=== PATIENT | female | born 1935 | race Caucasian/White ===

== ENCOUNTER 2016-04-14 20:51 | Inpatient (IN) | payer MEDICARE, BC ==
[2016-04-14] MEDS ORDERED: SODIUM CHLORIDE 0.9% 500 ML IV STA (22:08)
[2016-04-14 22:49] LABS: Basophils % (A) 0 %; CH 29.9; CHCM 32.5; Eosinophils # (A) 0.1 k/uL (0-0.7); Eosinophils % (A) 2 %; HCT 38.5 % (34.0-46.0); HDW 2.53; HGB 12.2 gm/dL (11.4-16.0); Luc # (Auto) 0.06; Luc % (Auto) 1; Lymphocytes # (A) 0.6 k/uL (1.0-4.8); Lymphocytes % (A) 9 %; MCH 29.3 pg (25.0-35.0); MCHC 31.8 g/dL (31.0-37.0); MCV 92.2 fL (80.0-100.0); Mean Platelet Volume 7.3; Monocytes # (A) 0.4 k/uL (0-1.0); Monocytes % (A) 7 %; Neutrophils # (A) 4.9 k/uL (1.3-7.7); Neutrophils % (A) 80 %; RBC 4.18 m/uL (3.80-5.40); RDW 13.5 % (11.5-15.5); WBC 6.1 k/uL (3.8-10.6); WBC (Perox) 6.47
[2016-04-14 23:01] LABS: Anion Gap 8 mmol/L; Calcium 7.3 mg/dL (8.4-10.2); Carbon Dioxide 23 mmol/L (22-30); Chloride 111 mmol/L (98-107); Glucose 77 mg/dL (74-99); Non-African American GFR(MDRD) >60 (>60 ml/min/1.73 sqM); Sodium 142 mmol/L (137-145); Total Bilirubin 1.5 mg/dL (0.2-1.3); Total Protein 5.1 g/dL (6.3-8.2)
[2016-04-14 23:14] LABS: ALT 27 U/L (9-52); AST 16 U/L (14-36); Alkaline Phosphatase 57 U/L (38-126); Blood Urea Nitrogen 16 mg/dL (7-17); Potassium 3.8 mmol/L (3.5-5.1)
[2016-04-14 23:28] LABS: Creatine Kinase MB 0.5 ng/mL (0.0-2.4)
[2016-04-15 00:12] LABS: Appearance,Urine Bloody (Clear)
[2016-04-15 00:15] LABS: Particle Count 197300; RBC,Urine >182 /hpf (0-5); WBC,Urine >182 /hpf (0-5)
[2016-04-15 00:18] LABS: UA Billing (MACRO vs. MICRO) MICRO
--- NOTE | 2016-04-15 00:27 | ED ---
Female Urogenital HPI - General Chief complaint: Vaginal Bleeding Stated complaint: Vaginal bleeding Time Seen by Provider: 04/14/16 22:00 Source: EMS, RN notes reviewed, old records reviewed Mode of arrival: EMS - History of Present Illness Initial comments: This is a 80-year-old female who was brought in for evaluation for vaginal bleeding. No other reports of any problems reports of nausea vomiting fevers chills sweats or other symptoms. Information is limited. MD Complaint: vaginal bleeding - Related Data Home Medications Medication Instructions Recorded Confirmed Aspirin EC [Ecotrin] 325 mg PO DAILY 08/16/15 08/16/15 Docusate [Colace] 100 mg PO DAILY PRN 08/16/15 08/16/15 risperiDONE [RisperDAL] 0.5 mg PO HS PRN 08/16/15 08/16/15 Previous Rx's Medication Instructions Recorded Furosemide [Lasix] 40 mg PO DAILY #0 tab 08/22/15 Potassium Chloride ER [K-Dur 10] 10 meq PO DAILY #30 tab 08/22/15 amLODIPine [Norvasc] 2.5 mg PO DAILY #30 tablet 08/22/15 Allergies Allergy/AdvReac Type Severity Reaction Status Date / Time No Known Allergies Allergy Verified 04/14/16 21:14 Review of Systems ROS Statement: Those systems with pertinent positive or pertinent negative responses have been documented in the HPI. ROS Other: All systems not noted in ROS Statement are negative. Limitations: ROS unobtainable due to patients medical condition Past Medical History Past Medical History: Atrial Fibrillation, Cancer, Heart Failure, GERD/Reflux Additional Past Medical History / Comment(s): UTERINE CANCER History of Any Multi-Drug Resistant Organisms: None Reported Past Surgical History: Hysterectomy, Tonsillectomy Additional Past Surgical History / Comment(s): HYSTERECTOMY FOR CANCER, CATARACT -LENS IMPLANTS NOT SURE WHICH EYE Past Anesthesia/Blood Transfusion Reactions: No Reported Reaction Past Psychological History: Anxiety, Depression Smoking Status: Never smoker Past Alcohol Use History: None Reported Past Drug Use History: None Reported - Past Family History Father Family Medical History: Unable to Obtain Mother Family Medical History: Unable to Obtain General Exam - General Exam Comments Initial Comments: This a well-developed asthenic appearing female she is minimally responsive to verbal questions General appearance: alert, in no apparent distress Head exam: Present: atraumatic, normocephalic, normal inspection Eye exam: Present: normal appearance, PERRL, EOMI. Absent: scleral icterus, conjunctival injection, periorbital swelling ENT exam: Present: mucous membranes dry Neck exam: Present: normal inspection. Absent: tenderness, meningismus, lymphadenopathy Respiratory exam: Present: normal lung sounds bilaterally. Absent: respiratory distress, wheezes, rales, rhonchi, stridor Cardiovascular Exam: Present: regular rate, normal rhythm, normal heart sounds. Absent: systolic murmur, diastolic murmur, rubs, gallop, clicks GI/Abdominal exam: Present: soft, normal bowel sounds. Absent: distended, tenderness, guarding, rebound, rigid Rectal exam: Present: normal inspection External exam: Present: other (Pelvic exam reveals a partially prolapsed uterus no blood emanating from the os small amount of blood in the vaginal introitus but no definite source of bleeding) Extremities exam: Present: normal inspection, full ROM, normal capillary refill. Absent: tenderness, pedal edema, joint swelling, calf tenderness Back exam: Present: normal inspection Neurological exam: Present: alert, oriented X3, CN II-XII intact Psychiatric exam: Present: normal affect, normal mood Skin exam: Present: warm, dry, intact, normal color. Absent: rash Course Vital Signs 04/14/16 21:08 Temperature 97.4 F L Pulse Rate 89 Respiratory 18 Rate Blood Pressure 140/73 O2 Sat by Pulse 99 Oximetry Medical Decision Making - Medical Decision Making The patient does demonstrate dementia. Did discuss the findings with Dr. Hutchins. Patient be admitted renal ultrasound will be ordered in the a.m. The exam did show evidence of gross hematuria. Patient be admitted - Lab Data Result diagrams: 04/14/16 22:30 04/14/16 22:30 Lab Results 04/14/16 04/14/16 04/14/16 Range/Units 22:30 22:30 22:30 WBC 6.1 (3.8-10.6) k/uL RBC 4.18 (3.80-5.40) m/uL Hgb 12.2 (11.4-16.0) gm/dL Hct 38.5 (34.0-46.0) % MCV 92.2 (80.0-100.0) fL MCH 29.3 (25.0-35.0) pg MCHC 31.8 (31.0-37.0) g/dL RDW 13.5 (11.5-15.5) % Plt Count 269 (150-450) k/uL Neutrophils % 80 % Lymphocytes % 9 % Monocytes % 7 % Eosinophils % 2 % Basophils % 0 % Neutrophils # 4.9 (1.3-7.7) k/uL Lymphocytes # 0.6 L (1.0-4.8) k/uL Monocytes # 0.4 (0-1.0) k/uL Eosinophils # 0.1 (0-0.7) k/uL Basophils # 0.0 (0-0.2) k/uL PT (9.0-12.0) sec INR (<1.1) APTT (22.0-30.0) sec Sodium 142 (137-145) mmol/L Potassium 3.8 (3.5-5.1) mmol/L Chloride 111 H (98-107) mmol/L Carbon Dioxide 23 (22-30) mmol/L Anion Gap 8 mmol/L BUN 16 (7-17) mg/dL Creatinine 0.60 (0.52-1.04) mg/dL Est GFR (MDRD) Af Amer >60 (>60 ml/min/1.73 sqM) Est GFR (MDRD) Non-Af >60 (>60 ml/min/1.73 sqM) Glucose 77 (74-99) mg/dL Calcium 7.3 L (8.4-10.2) mg/dL Total Bilirubin 1.5 H (0.2-1.3) mg/dL AST 16 (14-36) U/L ALT 27 (9-52) U/L Alkaline Phosphatase 57 (38-126) U/L Total Creatine Kinase (30-135) U/L CK-MB (CK-2) (0.0-2.4) ng/mL CK-MB (CK-2) Rel Index Total Protein 5.1 L (6.3-8.2) g/dL Albumin 2.2 L (3.5-5.0) g/dL Urine Color Urine Appearance (Clear) Urine RBC (0-5) /hpf Urine WBC (0-5) /hpf Blood Type A Positive Blood Type Confirm Blood Type Recheck CABO Indicated Antibody Screen NEGATIVE Spec Expiration Date 04/17/2016201604/14/16 04/14/16 04/14/16 Range/Units 22:30 22:30 23:50 WBC (3.8-10.6) k/uL RBC (3.80-5.40) m/uL Hgb (11.4-16.0) gm/dL Hct (34.0-46.0) % MCV (80.0-100.0) fL MCH (25.0-35.0) pg MCHC (31.0-37.0) g/dL RDW (11.5-15.5) % Plt Count (150-450) k/uL Neutrophils % % Lymphocytes % % Monocytes % % Eosinophils % % Basophils % % Neutrophils # (1.3-7.7) k/uL Lymphocytes # (1.0-4.8) k/uL Monocytes # (0-1.0) k/uL Eosinophils # (0-0.7) k/uL Basophils # (0-0.2) k/uL PT 11.4 (9.0-12.0) sec INR 1.1 (<1.1) APTT 22.9 (22.0-30.0) sec Sodium (137-145) mmol/L Potassium (3.5-5.1) mmol/L Chloride (98-107) mmol/L Carbon Dioxide (22-30) mmol/L Anion Gap mmol/L BUN (7-17) mg/dL Creatinine (0.52-1.04) mg/dL Est GFR (MDRD) Af Amer (>60 ml/min/1.73 sqM) Est GFR (MDRD) Non-Af (>60 ml/min/1.73 sqM) Glucose (74-99) mg/dL Calcium (8.4-10.2) mg/dL Total Bilirubin (0.2-1.3) mg/dL AST (14-36) U/L ALT (9-52) U/L Alkaline Phosphatase (38-126) U/L Total Creatine Kinase 31 (30-135) U/L CK-MB (CK-2) 0.5 (0.0-2.4) ng/mL CK-MB (CK-2) Rel Index 1.6 Total Protein (6.3-8.2) g/dL Albumin (3.5-5.0) g/dL Urine Color Light Red Urine Appearance Bloody H (Clear) Urine RBC >182 H (0-5) /hpf Urine WBC >182 H (0-5) /hpf Blood Type Blood Type Confirm Blood Type Recheck Antibody Screen Spec Expiration Date 04/15/16 Range/Units 00:09 WBC (3.8-10.6) k/uL RBC (3.80-5.40) m/uL Hgb (11.4-16.0) gm/dL Hct (34.0-46.0) % MCV (80.0-100.0) fL MCH (25.0-35.0) pg MCHC (31.0-37.0) g/dL RDW (11.5-15.5) % Plt Count (150-450) k/uL Neutrophils % % Lymphocytes % % Monocytes % % Eosinophils % % Basophils % % Neutrophils # (1.3-7.7) k/uL Lymphocytes # (1.0-4.8) k/uL Monocytes # (0-1.0) k/uL Eosinophils # (0-0.7) k/uL Basophils # (0-0.2) k/uL PT (9.0-12.0) sec INR (<1.1) APTT (22.0-30.0) sec Sodium (137-145) mmol/L Potassium (3.5-5.1) mmol/L Chloride (98-107) mmol/L Carbon Dioxide (22-30) mmol/L Anion Gap mmol/L BUN (7-17) mg/dL Creatinine (0.52-1.04) mg/dL Est GFR (MDRD) Af Amer (>60 ml/min/1.73 sqM) Est GFR (MDRD) Non-Af (>60 ml/min/1.73 sqM) Glucose (74-99) mg/dL Calcium (8.4-10.2) mg/dL Total Bilirubin (0.2-1.3) mg/dL AST (14-36) U/L ALT (9-52) U/L Alkaline Phosphatase (38-126) U/L Total Creatine Kinase (30-135) U/L CK-MB (CK-2) (0.0-2.4) ng/mL CK-MB (CK-2) Rel Index Total Protein (6.3-8.2) g/dL Albumin (3.5-5.0) g/dL Urine Color Urine Appearance (Clear) Urine RBC (0-5) /hpf Urine WBC (0-5) /hpf Blood Type Blood Type Confirm A Positive Blood Type Recheck Antibody Screen Spec Expiration Date - EKG Data -: EKG Interpreted by Me (Irregular rhythm anyone is a heart rate QRS of 70 daily since QTC of 370/45) - Radiology Data Radiology results: report reviewed (I did review the imaging and report no acute findings.), image reviewed Disposition Clinical Impression: Gross hematuria, Dehydration Disposition: ADMITTED IP TO THIS [facility] Condition: Stable
[2016-04-15 00:44] LABS: INR 1.1 (<1.1); Partial Thromboplastin Time 22.9 sec (22.0-30.0); Prothrombin Time 11.4 sec (9.0-12.0)
--- NOTE | 2016-04-15 01:13 | XR ---
EXAMINATION TYPE: XR abdomen 1V DATE OF EXAM: 04/15/2016 12:48 AM COMPARISON: NONE HISTORY: Blood in the urine TECHNIQUE: Single view FINDINGS: There is no sign of intestinal obstruction or pneumoperitoneum. Fecal pattern is normal. Th ere are no pathologic calcifications over the kidneys. There is blunting of right costophrenic angle. IMPRESSION: Nonacute abdomen. Right pleural effusion.
--- NOTE | 2016-04-15 01:15 | XR ---
EXAMINATION TYPE: XR chest 1V DATE OF EXAM: 04/15/2016 12:48 AM COMPARISON: 08/16/2015 HISTORY: Cough TECHNIQUE: Single frontal view of the chest is obtained. FINDINGS: There is blunting of right costophrenic angle. There is no heart failure. Left lung is sarah ar. There are chest leads. IMPRESSION: There is right pleural effusion and pleural diaphragmatic reaction that is new compared to old exam. No heart failure.
[2016-04-15] MEDS ORDERED: NALOXONE 0.4 MG/ML 1 ML VIAL IV PRN (01:30)
[2016-04-15] MEDS ORDERED: DOCUSATE 100 MG CAP PO PRN (01:32)
[2016-04-15] MEDS ORDERED: risperiDONE 0.5 MG TAB PO PRN (01:32)
[2016-04-15 02:39] VITALS: BMI 30.4
[2016-04-15] MEDS: SODIUM CHLORIDE 0.9% 1,000 ML IV SCH ×2 (04:56→08:54)
[2016-04-15] MEDS: POTASSIUM CHLORIDE ER 10 MEQ TAB.ER.PRT PO SCH (08:52)
[2016-04-15] MEDS: amLODIPine 2.5 MG TAB PO SCH (08:52)
[2016-04-15] MEDS: FUROSEMIDE 40 MG TAB PO SCH (08:52)
[2016-04-15] MEDS ORDERED: MAG HYDROX/AL HYDROX/SIMETH 30 ML CUP PO PRN (11:16)
[2016-04-15] MEDS ORDERED: ACETAMINOPHEN TAB 325 MG TAB PO PRN (11:16)
[2016-04-15] MEDS ORDERED: SENNOSIDES-DOCUSATE SODIUM 1 EACH TAB PO PRN (11:16)
--- NOTE | 2016-04-15 11:47 | US ---
EXAMINATION TYPE: US kidneys/renal and bladder DATE OF EXAM: 04/15/2016 10:32 AM COMPARISON: NONE CLINICAL HISTORY: Gross hematuria. EXAM MEASUREMENTS: Right Kidney: 10.2 x 3.9 x 4.1 cm Left Kidney: not well visualized cm Patient of large body habitus, unwilling to lay down for test, unwilling/unable to cooperate with exa deportation examiner, patient arms in way of scanning left kidney, exam very limited and technically difficult Right Kidney: there appears to be a cyst measuring 2.1 x 1.7 x 1.6cm, there also seems to be some mil d hydronephrosis, with dilated ureter Left Kidney: very difficult to visualize due to poor patient cooperation, patient stated that test ne eded to stop while examiner was scanning this kidney, not visualized in its entirety. Bladder: possible thick walled uterocele vs mass IMPRESSION: There is mild right hydronephrosis and hydroureter. No definite renal stone. However, there is abnorm al hypoechogenic lesion involving the bladder posterior wall possibly related to mass versus ureteroc javier.
--- NOTE | 2016-04-15 12:24 | P.HPIM ---
History of Present Illness H&P Date: 04/15/16 Chief Complaint: Hematuria This is a 80-year-old female with past medical history noted below significant for underlying dementia that is usually alert and oriented to herself and to the place only. Patient is a very poor historian. Most of the history was obtained by chart review and nursing staff report. Patient's a long-term resident at [facility]. She was brought into the emergency room with concern about possible vagina bleed. She was evaluated in the emergency room and was noted to have adry hematuria. Patient herself denies any abdominal pain. She is not sure why she is in the hospital. Her hemoglobin was stable. INR is normal. Patient is not on any anticoagulation usually. No prior episodes of hematuria known to me. Review of Systems Review of system: 14 points review of systems were obtained and were negative except to what were mentioned in the HPI. Past Medical History Past Medical History: Atrial Fibrillation, Cancer, Heart Failure, GERD/Reflux Additional Past Medical History / Comment(s): UTERINE CANCER History of Any Multi-Drug Resistant Organisms: None Reported Past Surgical History: Hysterectomy, Tonsillectomy Additional Past Surgical History / Comment(s): HYSTERECTOMY FOR CANCER, CATARACT -LENS IMPLANTS NOT SURE WHICH EYE Past Anesthesia/Blood Transfusion Reactions: No Reported Reaction Past Psychological History: Anxiety, Depression Smoking Status: Never smoker Past Alcohol Use History: None Reported Past Drug Use History: None Reported - Past Family History Father Family Medical History: Unable to Obtain Mother Family Medical History: Unable to Obtain Medications and Allergies Home Medications Medication Instructions Recorded Confirmed Type ALPRAZolam [Xanax] 0.25 mg PO HS@1700 04/15/16 04/15/16 History Acetaminophen [Tylenol] 650 mg PO Q6H PRN 04/15/16 04/15/16 History Aspirin 325 mg PO DAILY 04/15/16 04/15/16 History Mag Hydrox/Al Hydrox/Simeth 30 ml PO QID PRN 04/15/16 04/15/16 History [Maalox] Sennosides-Docusate Sodium 1 tab PO BID PRN 04/15/16 04/15/16 History [Senokot-S] risperiDONE [RisperDAL] 2 mg PO HS 04/15/16 04/15/16 History Allergies Allergy/AdvReac Type Severity Reaction Status Date / Time No Known Allergies Allergy Verified 04/15/16 08:30 Physical Exam Vitals: Vital Signs Temp Pulse Pulse Resp BP BP Pulse Ox 04/15/16 07:00 97.4 F L 103 H 16 107/69 97 04/15/16 02:02 97.5 F L 78 18 119/60 98 Intake and Output 04/14/16 04/15/16 04/15/16 22:59 06:59 14:59 Intake Total 240 Balance 240 Intake: IV 240 Sodium Chloride 0.9% 1, 240 000 ml @ 80 mls/hr IV . [id number] [facility] Rx#:[id number] Other: Voiding Method Diaper Diaper Incontinent Incontinent # Voids 1 Weight 90.718 kg General: The patient is awake and alert, in no distress Eye: there is normal conjunctiva bilaterally. Neck: The neck is supple, there is no JVD. Cardiovascular: Normal S1-S2, no S3-S4, no murmurs. Respiratory: Lungs clear to auscultation bilaterally Gastrointestinal: Abdomen is soft, nontender Musculoskeletal: There is no pedal edema. Neurological:. Speech is normal. Skin: Skin is warm and dry Results CBC & Chem 7: 04/14/16 22:30 04/14/16 22:30 Thrombosis Risk Factor Assmnt - Choose All That Apply Each Factor Represents 1 point: Obesity (BMI >25) Each Risk Factor Represents 3 Points: Age 75 years or older Thrombosis Risk Factor Assessment Total Risk Factor Score: 4 Thrombosis Risk Factor Assessment Level: Moderate Risk Assessment and Plan Plan: 1. Acute cystitis with hematuria: Started on IV ceftriaxone 2. Hematuria most likely attributed to #1. Awaiting kidney ultrasound to rule out kidney stones. If nondiagnostic in hematuria persists will consider computed tomography scan 3. Underlying vascular dementia with occasional psychotic features: Now stable 4. Essential hypertension: Blood pressure well-controlled 5. Chronic venous insufficiency
[2016-04-15 13:29] LABS: Bilirubin,Urine Negative (Negative); Glucose,Urine (UA) Negative (Negative); Ketones,Urine Negative (Negative); Leukocyte Esterase,Urine Moderate (Negative); Nitrite,Urine Negative (Negative); Particle Count 7127; Protein,Urine 1+ (Negative); RBC,Urine >182 /hpf (0-5); Specific Gravity,Urine 1.014 (1.001-1.035); UA Billing (MACRO vs. MICRO) MICRO; Urobilinogen,Urine <2.0 mg/dL (<2.0); WBC,Urine 50 /hpf (0-5)
[2016-04-15 13:43] LABS: Appearance,Urine Bloody (Clear)
[2016-04-15] MEDS: ALPRAZolam 0.25 MG TAB PO SCH (16:55)
[2016-04-15] MEDS: risperiDONE 2 MG TAB PO SCH (19:51)
[2016-04-16 08:46] LABS: Basophils % (A) 0 %; CH 29.6; CHCM 31.3; Eosinophils # (A) 0.1 k/uL (0-0.7); Eosinophils % (A) 2 %; HCT 37.5 % (34.0-46.0); HDW 2.46; HGB 11.8 gm/dL (11.4-16.0); Hypochromasia Slight; Luc # (Auto) 0.06; Luc % (Auto) 1; Lymphocytes # (A) 0.4 k/uL (1.0-4.8); Lymphocytes % (A) 7 %; MCH 29.9 pg (25.0-35.0); MCHC 31.5 g/dL (31.0-37.0); MCV 95.1 fL (80.0-100.0); Mean Platelet Volume 7.4; Monocytes # (A) 0.3 k/uL (0-1.0); Monocytes % (A) 7 %; Neutrophils # (A) 4.3 k/uL (1.3-7.7); Neutrophils % (A) 83 %; RBC 3.94 m/uL (3.80-5.40); RDW 13.7 % (11.5-15.5); WBC 5.2 k/uL (3.8-10.6)
[2016-04-16 09:03] LABS: Anion Gap 8 mmol/L; Blood Urea Nitrogen 12 mg/dL (7-17); Calcium 8.7 mg/dL (8.4-10.2); Carbon Dioxide 26 mmol/L (22-30); Chloride 109 mmol/L (98-107); Glucose 80 mg/dL (74-99); Non-African American GFR(MDRD) >60 (>60 ml/min/1.73 sqM); Potassium 4.2 mmol/L (3.5-5.1); Sodium 143 mmol/L (137-145)
[2016-04-16] MEDS: amLODIPine 2.5 MG TAB PO SCH (09:35)
[2016-04-16] MEDS: FUROSEMIDE 40 MG TAB PO SCH (09:35)
[2016-04-16] MEDS: POTASSIUM CHLORIDE ER 10 MEQ TAB.ER.PRT PO SCH (09:35)
--- NOTE | 2016-04-16 11:43 | P.PN ---
Subjective Patient remained confused today. Her hematuria appears to be resolving. Hemoglobin is stable. Objective - Vital Signs Vital signs: Vital Signs Temp 98.0 F 04/16/16 07:00 Pulse 89 04/16/16 07:00 Resp 16 04/16/16 07:00 BP 114/65 04/16/16 07:00 Pulse Ox 93 L 04/16/16 07:00 Intake & Output 04/15/16 04/16/16 04/16/16 18:59 06:59 18:59 Intake Total 930 1230 Balance 930 1230 Weight 90.718 kg Intake: IV 640 640 Sodium Chloride 0.9% 1, 640 640 000 ml @ 80 mls/hr IV . [id number] [facility] Rx#:[id number] Intake, IV Titration 50 Amount cefTRIAXone 1,000 mg In 50 Sodium Chloride 0.9% 50 ml @ 100 mls/hr IVPB Q24H [facility] Rx#:[id number] Oral 240 590 Other: Voiding Method Diaper Diaper Incontinent Incontinent # Voids 4 1 - Labs CBC & Chem 7: 04/16/16 08:04 04/16/16 08:04 Labs: Abnormal Lab Results - Last 24 Hours (Table) 04/15/16 04/16/16 04/16/16 Range/Units 12:10 08:04 08:04 Lymphocytes # 0.4 L (1.0-4.8) k/uL Chloride 109 H (98-107) mmol/L Urine Appearance Bloody H (Clear) Urine Protein 1+ H (Negative) Urine Blood Large H (Negative) Ur Leukocyte Esterase Moderate H (Negative) Urine RBC >182 H (0-5) /hpf Urine WBC 50 H (0-5) /hpf Microbiology - Last 24 Hours (Table) 04/15/16 12:10 Urine Culture - Preliminary Urine,Catheterized Assessment and Plan Plan: 1. Acute cystitis with hematuria: Started on IV ceftriaxone awaiting urine culture 2. Hematuria with suspected intraluminal mass seen and evaluated by urology plan for cystoscopy in the morning. 3. Underlying vascular dementia with occasional psychotic features: Now stable 4. Essential hypertension: Blood pressure well-controlled 5. Chronic venous insufficiency Plan for today: Continue supportive care. Nothing by mouth after midnight. Cystoscopy in the morning. Start IV fluid in the evening.
--- NOTE | 2016-04-16 14:26 | CONS ---
DATE OF CONSULTATION: 04/16/2016 REASON FOR CONSULTATION: Gross hematuria. Patient is an 80-year-old female with dementia who was noted to have blood in her diaper yesterday. Initially it was unclear whether this was vaginal bleeding or gross hematuria. The patient was taken to the emergency room where she was evaluated and noted to have gross hematuria. Patient's hemoglobin was 12.2, BUN 16, and creatinine was 0.60. The patient was admitted for further evaluation. Renal ultrasound showed mild right hydronephrosis and a possible 3 cm bladder mass. Since yesterday, the patient's gross hematuria has almost resolved, as this morning she is voiding pink urine without clots. The patient is incontinent. The patient is demented and is unable to provide any meaningful history. PAST MEDICAL HISTORY: Significant in regard to either uterine or cervical cancer, previously treated with abdominal hysterectomy and radiation therapy. She has also undergone cataract surgery. There is apparently a history of atrial fibrillation and GERD. Medications on admission included Lasix, K-Dur, Senokot, Xanax, aspirin and Risperdal. The patient has no allergies. Review of systems is unobtainable due to the patient's dementia. SOCIAL HISTORY: The patient apparently does not smoke. Physical exam reveals an elderly female who is somewhat confused, afebrile. Blood pressure 107/75. HEENT: No scleral icterus. No supraclavicular or cervical adenopathy. CHEST: Breathing is unlabored. ABDOMEN: Somewhat obese. No hepatosplenomegaly. No suprapubic tenderness. There is a tattoo in the suprapubic region and over the right hip, which is most likely from previous radiation therapy. Bimanual pelvic examination was attempted and the urethral meatus and external genitalia appeared normal. The patient would not allow further exam. IMPRESSION: Gross hematuria and mild right hydronephrosis- the cause of this is unclear. The patient does appear to have an abnormality in the bladder noted on the ultrasound of the kidneys and bladder. Cystoscopy and right retrograde will be set up for further evaluation of this, as it is unclear whether this could represent a blood clot or urothelial tumor. Thank you for allowing me to participate in the care of this patient. ALINE
[2016-04-16] MEDS: ALPRAZolam 0.25 MG TAB PO SCH (19:53)
[2016-04-16] MEDS: risperiDONE 2 MG TAB PO SCH (19:53)
[2016-04-17] MEDS: DEXTROSE 5%-0.45% NACL 1,000 ML IV SCH ×2 (00:36→16:13)
[2016-04-17 07:37] LABS: Basophils % (A) 0 %; CH 29.7; CHCM 32.2; Eosinophils # (A) 0.1 k/uL (0-0.7); Eosinophils % (A) 2 %; HGB 11.3 gm/dL (11.4-16.0); Luc # (Auto) 0.06; Luc % (Auto) 1; Lymphocytes # (A) 0.4 k/uL (1.0-4.8); Lymphocytes % (A) 9 %; MCH 29.1 pg (25.0-35.0); MCHC 31.5 g/dL (31.0-37.0); MCV 92.5 fL (80.0-100.0); Mean Platelet Volume 7.4; Monocytes # (A) 0.4 k/uL (0-1.0); Monocytes % (A) 8 %; Neutrophils # (A) 3.7 k/uL (1.3-7.7); Neutrophils % (A) 80 %; RBC 3.89 m/uL (3.80-5.40); RDW 13.4 % (11.5-15.5); WBC 4.7 k/uL (3.8-10.6); WBC (Perox) 4.98
[2016-04-17 08:01] LABS: Anion Gap 7 mmol/L; Blood Urea Nitrogen 11 mg/dL (7-17); Calcium 8.4 mg/dL (8.4-10.2); Carbon Dioxide 28 mmol/L (22-30); Chloride 105 mmol/L (98-107); Glucose 89 mg/dL (74-99); Non-African American GFR(MDRD) >60 (>60 ml/min/1.73 sqM); Potassium 3.4 mmol/L (3.5-5.1); Sodium 140 mmol/L (137-145)
[2016-04-17] MEDS ORDERED: IV FLUID CONTINUATION 1,000 ML IV ONE (11:31)
--- NOTE | 2016-04-17 12:21 | P.PN ---
Subjective Patient is scheduled for operation on today for cystoscopy. Objective - Vital Signs Vital signs: Vital Signs Temp 97.7 F 04/17/16 07:00 Pulse 79 04/17/16 07:00 Resp 18 04/17/16 07:00 BP 125/65 04/17/16 07:00 Pulse Ox 98 04/17/16 07:00 Intake & Output 04/16/16 04/17/16 04/17/16 18:59 06:59 18:59 Intake Total 0 550 Balance 0 550 Intake: IV 550 Oral 0 Other: Voiding Method Diaper Diaper Diaper Incontinent Incontinent Incontinent # Voids 2 2 - Labs CBC & Chem 7: 04/17/16 07:18 04/17/16 07:18 Labs: Abnormal Lab Results - Last 24 Hours (Table) 04/17/16 04/17/16 Range/Units 07:18 07:18 Hgb 11.3 L (11.4-16.0) gm/dL Lymphocytes # 0.4 L (1.0-4.8) k/uL Potassium 3.4 L (3.5-5.1) mmol/L Microbiology - Last 24 Hours (Table) 04/15/16 12:10 Urine Culture - Final Urine,Catheterized Assessment and Plan Plan: 1. Acute cystitis with hematuria: Started on IV ceftriaxone awaiting urine culture 2. Hematuria with suspected intraluminal mass seen and evaluated by urology plan for cystoscopy today 3. Underlying vascular dementia with occasional psychotic features: Now stable 4. Essential hypertension: Blood pressure well-controlled 5. Chronic venous insufficiency Plan for today: Continue supportive care. Plan for OR later.
[2016-04-17] MEDS ORDERED: LIDOCAINE 1% INJ 10MG/ML (20 ML MDV) ONE (12:28)
[2016-04-17] MEDS ORDERED: PROPOFOL 10 MG/ML 20 ML VIAL IV ONE (12:28)
[2016-04-17] MEDS ORDERED: PHENYLEPHRINE-0.9% NACL SYG 1 MG/10 ML SYRINGE ONE (12:28)
[2016-04-17] MEDS ORDERED: MIDAZOLAM 2 MG/2 ML VIAL ONE (12:28)
[2016-04-17] MEDS ORDERED: SUCCINYLCHOLINE CHLORIDE 100 MG/5 ML SYR IV ONE (12:28)
[2016-04-17] MEDS ORDERED: fentaNYL (PF) 50 MCG/ML 2 ML AMP ONE (12:28)
[2016-04-17] MEDS ORDERED: IOHEXOL 300 MG/ML 50 ML BOTTLE MISCELLANE ONE (12:46)
[2016-04-17] MEDS ORDERED: LACTATED RINGERS 1,000 ML IV ONE (12:58)
--- NOTE | 2016-04-17 14:36 | FL ---
Fluoroscopy HISTORY: Pain 4 seconds fluoroscopy time supplied to the referring clinician. 6 intraoperative C-arm images docume nt the procedure. See dictated report from urology.
[2016-04-17] MEDS: POTASSIUM CHLORIDE ER 10 MEQ TAB.ER.PRT PO SCH (15:52)
[2016-04-17] MEDS: FUROSEMIDE 40 MG TAB PO SCH (15:52)
[2016-04-17] MEDS: amLODIPine 2.5 MG TAB PO SCH (15:52)
[2016-04-17] MEDS: risperiDONE 2 MG TAB PO SCH (20:38)
[2016-04-17] MEDS: ALPRAZolam 0.25 MG TAB PO SCH (20:40)
--- NOTE | 2016-04-17 23:22 | OP ---
DATE OF SERVICE: 04/17/2016 SURGEON: SUSANA WILLIAMSON MD PREOPERATIVE DIAGNOSIS: Gross hematuria and possible bladder mass plus mild right hydronephrosis. POSTOPERATIVE DIAGNOSES: 1. 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 2. Right hydronephrosis secondary to extrinsic compression of right ureter. OPERATION: Cystoscopy with right retrograde pyelogram ANESTHESIA: General. The patient is an 80-year-old female with a history of dementia who was admitted on 04/15 with gross hematuria. Renal ultrasound showed evidence of mild right hydronephrosis and what appeared to be a mass in the bladder. The patient was unable to provide any history but has tattoos in her pelvis consistent with previous pelvic radiation therapy as well as a lower abdominal midline scar consistent with a hysterectomy. Cystoscopy is planned for further evaluation of the hematuria. PROCEDURE: The patient was taken to the operating suite, where adequate general anesthesia via orotracheal intubation was instituted. The patient was placed in the dorsal lithotomy position with her legs suspended from padded Derrell stirrups. Pneumatic compression stockings were applied to the lower legs. The genitalia was prepped with Betadine solution and draped in a sterile fashion. The external genitalia and urethral meatus were unremarkable. The 19 Pakistani cystoscope sheath with 30-degree lens was passed through the urethra and into the bladder. Both ureteral orifices were of normal location and configuration. There was some minimal scarring of the right ureteral orifice, but it was otherwise unremarkable. The bladder showed evidence of diffuse telectasias consistent with previous radiation therapy. There was no evidence of tumor, foreign body or clot present within the bladder. A right retrograde pyeloureterogram was performed using an 8 Pakistani cone-tipped catheter. There is some mild compression of the pelvic ureter, and at the pelvic brim near the iliac vessels there appeared to be some extrinsic compression of the ureter. Ureter proximal to that was slightly dilated. In view of the patient's age and a normal creatinine of 0.60 at the time of admission, it was my feeling that further intervention in regard to the hydronephrosis was not warranted. The cystoscope was withdrawn and the procedure was terminated. The patient tolerated the procedure well and left the operating room awake and in satisfactory condition. There was no blood loss. No further evaluation is planned at this time. [facility]
[2016-04-18] MEDS: amLODIPine 2.5 MG TAB PO SCH (10:30)
[2016-04-18] MEDS: FUROSEMIDE 40 MG TAB PO SCH (10:30)
[2016-04-18] MEDS: POTASSIUM CHLORIDE ER 10 MEQ TAB.ER.PRT PO SCH (10:31)
[2016-04-18] MEDS: DEXTROSE 5%-0.45% NACL 1,000 ML IV SCH (12:29)
[2016-04-18] MEDS ORDERED: RX INFO: IV CONTRAST WAS GIVEN 1 EACH MISC MISCELLANE PRN (12:50)
--- NOTE | 2016-04-18 14:23 | P.PN ---
Subjective Patient was slightly agitated this morning and refuses to take her medications. No events overnight. No further hematuria. Objective - Vital Signs Vital signs: Vital Signs Temp 97.7 F 04/18/16 07:00 Pulse 86 04/18/16 08:00 Resp 16 04/18/16 08:00 BP 120/60 04/18/16 07:00 Pulse Ox 93 L 04/18/16 07:00 Intake & Output 04/17/16 04/18/16 04/18/16 18:59 06:59 18:59 Intake Total 1100 600 Output Total 0 Balance 1100 600 Weight 90.718 kg Intake: IV 1100 600 Dextrose 5%-0.45% NaCl 1, 600 000 ml @ 50 mls/hr IV . Q20H LYN Rx#:[id number] Output: Estimated Blood Loss 0 Other: Voiding Method Diaper Diaper Diaper Incontinent Incontinent Incontinent # Voids 2 2 - Exam General: The patient is awake and alert, in no distress Eye: there is normal conjunctiva bilaterally. Neck: The neck is supple, there is no JVD. Cardiovascular: Normal S1-S2, no S3-S4, no murmurs. Respiratory: Lungs clear to auscultation bilaterally Gastrointestinal: Abdomen is soft, nontender Musculoskeletal: There is no pedal edema. Neurological:. Speech is normal. Skin: Skin is warm and dry - Labs CBC & Chem 7: 04/17/16 07:18 04/17/16 07:18 Assessment and Plan Plan: 1. 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 Started on IV ceftriaxone, urine culture negative. We will finish 3 days course of antibiotic. 2. Hematuria with suspected intraluminal mass on ultrasound. Seen and evaluated by urology. Status post cystoscopy with no evidence of intraluminal mass. Evidence of cystitis secondary to radiation and possible extrinsic compression on the right ureter. I would obtain a computed tomography scan of the abdomen and pelvis for further evaluation 3. Underlying vascular dementia with occasional psychotic features: Now stable 4. Essential hypertension: Blood pressure well-controlled 5. Chronic venous insufficiency Plan for today: Obtain computed tomography scan of the abdomen and pelvis. Continue supportive care. Repeat lab work in the morning. Possible discharge back to [facility] tomorrow.
--- NOTE | 2016-04-18 15:47 | CT ---
EXAMINATION TYPE: CT abdomen pelvis w con DATE OF EXAM: 04/18/2016 3:08 PM COMPARISON: Retrograde urogram first of April 2015, ultrasound kidneys 15 April 2016 HISTORY: Patient poor historian. Possible extrinsic ureter compression or mass. CT DLP: 1409.50 mGycm Automated exposure control for dose reduction was used. TECHNIQUE: Helical acquisition of images was performed from the lung bases through the pelvis. CONTRAST: Performed without Oral Contrast and with IV Contrast, patient injected with 100 mL of Omnipaque 300. FINDINGS: LUNG BASES: Small bilateral pleural effusions and associated atelectasis are present posteriorly. The heart is enlarged. There are mitral annular and coronary artery calcifications, no pericardial effus ion LIVER/GB: No significant abnormality is appreciated in gallbladder. Liver shows low attenuation, is s lightly enlarged. PANCREAS: No significant abnormality is seen. SPLEEN: No significant abnormality is seen. ADRENALS: No significant abnormality is seen. KIDNEYS: Mild hydronephrosis right kidney and right hydroureter to the level of the surgical clips no mike in the retroperitoneum along the psoas. RETROPERITONEAL ADENOPATHY: None visualized REPRODUCTIVE ORGANS: Post hysterectomy, ovaries are not seen URINARY BLADDER: Bladder wall thickening is indeterminate. PELVIC ADENOPATHY: None visualized. 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 BOWEL: No significant abnormality is seen. OTHER: IMPRESSION: Partial ureteral obstruction is likely due to post op changes, scarring. Bilateral effusions, hepatom egaly and possible fatty infiltration. Additional findings above.
[2016-04-18] MEDS: ALPRAZolam 0.25 MG TAB PO SCH ×2 (18:36→20:59)
[2016-04-18] MEDS: risperiDONE 2 MG TAB PO SCH (20:59)
[2016-04-19 07:41] LABS: Basophils % (A) 0 %; CH 29.4; Eosinophils # (A) 0.1 k/uL (0-0.7); Eosinophils % (A) 2 %; HCT 39.8 % (34.0-46.0); HDW 2.44; HGB 12.1 gm/dL (11.4-16.0); Hypochromasia Slight; Luc % (Auto) 2; Lymphocytes # (A) 0.5 k/uL (1.0-4.8); Lymphocytes % (A) 9 %; MCHC 30.5 g/dL (31.0-37.0); MCV 95.2 fL (80.0-100.0); Mean Platelet Volume 7.5; Monocytes # (A) 0.5 k/uL (0-1.0); Monocytes % (A) 9 %; Neutrophils # (A) 4.2 k/uL (1.3-7.7); Neutrophils % (A) 77 %; RBC 4.18 m/uL (3.80-5.40); RDW 13.6 % (11.5-15.5); WBC 5.4 k/uL (3.8-10.6); WBC (Perox) 5.14
[2016-04-19 07:48] LABS: Anion Gap 10 mmol/L; Blood Urea Nitrogen 14 mg/dL (7-17); Carbon Dioxide 24 mmol/L (22-30); Chloride 107 mmol/L (98-107); Glucose 84 mg/dL (74-99); Non-African American GFR(MDRD) >60 (>60 ml/min/1.73 sqM); Potassium 4.1 mmol/L (3.5-5.1); Sodium 141 mmol/L (137-145)
[2016-04-19] MEDS: amLODIPine 2.5 MG TAB PO SCH (08:56)
[2016-04-19] MEDS: POTASSIUM CHLORIDE ER 10 MEQ TAB.ER.PRT PO SCH (08:56)
[2016-04-19] MEDS: FUROSEMIDE 40 MG TAB PO SCH (08:56)
[2016-04-19 10:12] VITALS: RESP 16
--- NOTE | 2016-04-19 14:35 | P.DS ---
Providers Date of admission: 04/15/16 01:30 Expected date of discharge: 04/19/16 Attending physician: Corina Hutchins Consults: 04/15/16 16:11 Consult Physician Routine Consulting Provider: Berny Villegas Consult Reason/Comments: Hematuria suspected bladder mass? Do you want consulting provider notified?: Yes Primary care physician: Anuradha Rajan Hospital Course: Discharge diagnosis 1. 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 Started on IV ceftriaxone, urine culture negative. Patient completed antibiotic treatment and hospital 2. Hematuria with suspected intraluminal mass on ultrasound. Seen and evaluated by urology. Status post cystoscopy with no evidence of intraluminal mass. Evidence of cystitis secondary to radiation and possible extrinsic compression on the right ureter. Computed tomography scan showed partial ureteral obstruction likely due to postop changes and scarring. 3. Underlying vascular dementia with occasional psychotic features: Now stable 4. Essential hypertension: Blood pressure well-controlled 5. Chronic venous insufficiency Hospital course This is a 80-year-old female with past medical history noted below significant for underlying dementia that is usually alert and oriented to herself and to the place only. Patient is a very poor historian. Most of the history was obtained by chart review and nursing staff report. Patient's a long-term resident at [facility]. She was brought into the emergency room with concern about possible vagina bleed. She was evaluated in the emergency room and was noted to have adry hematuria. Patient was evaluated by urology. Patient had a renal ultrasound had showed mild right hydronephrosis and what appeared to be a mass in the bladder. She also is having some hematuria. And therefore underwent a cystoscopy with Dr. Donahue. Dr. 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 In the right hydronephrosis is secondary to extrinsic compression of the right ureter. There was no evidence of any mass. Further computed tomography scan showed a partial ureteral obstruction due to postop changes and scarring. Patient's symptoms have improved she is stable for discharge. She did complete treatment for this cystitis with Rocephin for 4 days. Patient will be discharged to [facility]. Dr. Rajan will continue to follow her there. Patient Condition at Discharge: Stable Plan - Discharge Summary Discharge Medication List Furosemide [Lasix] 40 mg PO DAILY #0 tab 08/22/15 [Rx] Potassium Chloride ER [K-Dur 10] 10 meq PO DAILY #30 tab 08/22/15 [Rx] ALPRAZolam [Xanax] 0.25 mg PO HS@1700 04/15/16 [History] Acetaminophen [Tylenol] 650 mg PO Q6H PRN 04/15/16 [History] Aspirin 325 mg PO DAILY 04/15/16 [History] Mag Hydrox/Al Hydrox/Simeth [Maalox] 30 ml PO QID PRN 04/15/16 [History] Sennosides-Docusate Sodium [Senokot-S] 1 tab PO BID PRN 04/15/16 [History] risperiDONE [RisperDAL] 2 mg PO HS 04/15/16 [History] amLODIPine [Norvasc] 2.5 mg PO DAILY tab 04/19/16 [Rx] Follow up Appointment(s)/Referral(s): Anuradha Rajan MD [Primary Care Provider] - 1 Week Activity/Diet/Wound Care/Special Instructions: Diet: cardiac Actvity: as tolerated [facility] Rajan to follow at [facility] Discharge Disposition: TRANSFER TO SNF/ECF
[2016-04-19 16:44] VITALS: BP 120/77; PULSE 90; TEMP 97.1
== END 2016-04-19 19:15 | DRG 699 ==
LOC: EC 20:51 → 5MS5E 04-15 01:30
PROVIDERS: ADMIT Internal Medicine; ATTEND Internal Medicine
PROC: BT1D1ZZ Fluoroscopy of Right Kidney, Ureter and Bladder using Low Osmolar Contrast (ICD-10-PCS; principal; 2016-04-17 11:45)
DX: N30.41 Irradiation cystitis with hematuria (principal); N13.1 Hydronephrosis with ureteral stricture, not elsewhere classified; I50.9 Heart failure, unspecified; I48.91 Unspecified atrial fibrillation; I11.0 Hypertensive heart disease with heart failure; R31.0 Gross hematuria; E86.0 Dehydration; F01.50 Vascular dementia, unspecified severity, without behavioral disturbance, psychotic disturbance, mood disturbance, and anxiety; R32 Unspecified urinary incontinence; I87.2 Venous insufficiency (chronic) (peripheral); F41.9 Anxiety disorder, unspecified; F32.9 Major depressive disorder, single episode, unspecified; K21.9 Gastro-esophageal reflux disease without esophagitis; Z92.3 Personal history of irradiation; Z79.82 Long term (current) use of aspirin; Z96.1 Presence of intraocular lens; Z79.899 Other long term (current) drug therapy; Z90.710 Acquired absence of both cervix and uterus; Z98.49 Cataract extraction status, unspecified eye; Z85.41 Personal history of malignant neoplasm of cervix uteri; Z85.42 Personal history of malignant neoplasm of other parts of uterus; Y84.2 Radiological procedure and radiotherapy as the cause of abnormal reaction of the patient, or of later complication, without mention of misadventure at the time of the procedure
CPT/HCPCS: 36415; 71010; 74000; 74177; 74420; 76770; 80048; 80053; 81001; 82550; 82553; 85025; 85610; 85730; 86850; 86900; 86901; 87086; 96360; 96361; 99285